=== PATIENT | male | born 1960 | race Two or more races ===

== ENCOUNTER 2024-08-22 11:28 | Inpatient (IN) | payer OTHER ==
[~2024-08-22] VITALS: Ht 165.1 cm; Wt 54.4 kg
[2024-08-22] MEDS ORDERED: HUMULIN 70100 UNIT/2 (12:32)
[2024-08-22] MEDS ORDERED: LOSARTAN (12:33)
[2024-08-29] MEDS ORDERED: CANDESARTAN CILE8 M1 (11:00)
[2024-08-29] MEDS ORDERED: SIMVASTATIN40 MG (11:00)
[2024-08-29] MEDS ORDERED: GABAPENTIN800 M1 (11:00)
[2024-08-29] MEDS ORDERED: OMEPRAZOLE40 MG (11:00)
[2024-08-29] MEDS ORDERED: METRONIDAZOLE/SODIUM CHLORIDE 500 MG/100 ML PIGGYBACK IV ONE (12:15)
[2024-08-29] MEDS ORDERED: LIDOCAINE HCL 1%/EPINEPHRINE 20ML VIAL IJ ONE (12:15)
[2024-08-29] MEDS ORDERED: BUPIVACAINE HCL/PF 0.25% 50 ML VIAL IJ ONE (12:15)
[2024-08-29] MEDS ORDERED: CEFTRIAXONE SODIUM 2,000 MG VIAL IV ONE (12:15)
[2024-08-29] MEDS ORDERED: OxyCODONE HCL 5 MG TABLET (ROXICODONE) PO PRN (14:15)
[2024-08-29] MEDS ORDERED: ONDANSETRON HCL 2 MG/ML VIAL IV PRN (14:15)
[2024-08-29] MEDS ORDERED: 0.9 % SODIUM CHLORIDE 1,000 ML IV SCH (14:15)
[2024-08-29] MEDS ORDERED: DEXTROSE 50 % IN WATER 0.5 G/ML DISP.SYRIN IV PRN ×2 (14:15→14:45)
[2024-08-29] MEDS ORDERED: MORPHINE SULFATE 4 MG/ML CARTRIDGE IV PRN (14:15)
[2024-08-29] MEDS ORDERED: INSULIN LISPRO 1,000 UNIT/10 ML UNITS SUBCUTANEO PRN (14:45)
[2024-08-29] MEDS ORDERED: GABAPENTIN 300 MG CAPSULE PO SCH (17:00)
[2024-08-29] MEDS ORDERED: METRONIDAZOLE/SODIUM CHLORIDE 500 MG/100 ML PIGGYBACK IV SCH (17:00)
[2024-08-29] MEDS ORDERED: HYOSCYAMINE SULFATE 0.125 MG TAB.SUBL SL SCH (17:00)
[2024-08-29] MEDS ORDERED: POLYETHYLENE GLYCOL 3350 17 GM BLIST.PACK PO SCH (17:00)
[2024-08-29] MEDS ORDERED: MORPHINE SULFATE 4 MG/ML VIAL IV ONE (17:05)
[2024-08-29 18:01] LABS: HEMATOCRIT 28.3 % (39.0-48.0); HEMOGLOBIN 9.5 g/dL (13-16.00); MEAN CELL VOLUME 74.9 fL (80.0-100.00); MEAN CORPUSCULAR HEMOGLOBIN 25.2 pg (27.00-32.0); MEAN CORPUSCULAR HGB CONC 33.6 g/dl (32.0-36.0); PLATELET COUNT 146 K/uL (150-450); RED BLOOD COUNT 3.78 M/uL (4.00-6.00); RED CELL DISTRIBUTION WIDTH 17.2 % (11.5-14.5)
[2024-08-29 18:25] LABS: ALBUMIN 3.3 gm/dL (3.4-5.0); CALCIUM 8.4 mg/dL (8.5-10.1); CREATININE SERUM 1.02 mg/dL (0.70-1.30); GFR 73.76; MAGNESIUM 2.2 mg/dL (1.8-2.4); PHOSPHOROUS 2.7 mg/dL (2.5-4.9); POTASSIUM 4.54 mEq/L (3.5-5.1)
[2024-08-29] MEDS ORDERED: ENALAPRILAT DIHYDRATE 1.25 MG/ML VIAL IV ONE (18:30)
[2024-08-29 19:36] VITALS: BP 136/63; O2SAT 100
[2024-08-29] MEDS ORDERED: ACETAMINOPHEN 500 MG GEL..CAP PO SCH (20:00)
[2024-08-29] MEDS ORDERED: CELECOXIB 200 MG CAPSULE PO SCH (21:00)
[2024-08-29] MEDS ORDERED: FAMOTIDINE/PF 20 MG/2 ML VIAL IV PUSH SCH (21:00)
[2024-08-30 00:47] VITALS: BP 137/85; O2SAT 100
[2024-08-30 07:06] LABS: HEMATOCRIT 27.7 % (39.0-48.0); HEMOGLOBIN 9.3 g/dL (13-16.00); MEAN CELL VOLUME 75.2 fL (80.0-100.00); MEAN CORPUSCULAR HEMOGLOBIN 25.3 pg (27.00-32.0); MEAN CORPUSCULAR HGB CONC 33.7 g/dl (32.0-36.0); PLATELET COUNT 156 K/uL (150-450); RED BLOOD COUNT 3.68 M/uL (4.00-6.00); RED CELL DISTRIBUTION WIDTH 17.1 % (11.5-14.5)
[2024-08-30 07:46] LABS: CALCIUM 8.1 mg/dL (8.5-10.1); CREATININE SERUM 1.11 mg/dL (0.70-1.30); GFR 66.91; MAGNESIUM 2.2 mg/dL (1.8-2.4); PHOSPHOROUS 3.6 mg/dL (2.5-4.9); POTASSIUM 5.11 mEq/L (3.5-5.1)
[2024-08-30 08:00] VITALS: BP 160/76; O2SAT 100
[2024-08-30] MEDS ORDERED: CANDESARTAN CILEXETIL 8 MG TAB PO SCH (09:00)
[2024-08-30 16:00] VITALS: BP 149/71; O2SAT 93
[2024-08-30] MEDS ORDERED: FOLIC ACID 1 MG TABLET PO SCH (17:00)
[2024-08-30] MEDS ORDERED: ENOXAPARIN SODIUM 40 MG/0.4 ML SYRINGE SUBCUTANEO SCH (17:00)
[2024-08-30] MEDS ORDERED: Cyanocobalamin/Mecobalamin 1 TAB.SL SL SCH (17:00)
[2024-08-31 00:43] VITALS: BP 160/77; O2SAT 97
[2024-08-31] MEDS ORDERED: ENOXAPARIN SODIUM 40 MG/0.4 ML SYRINGE SUBCUTANEO SCH (09:00)
[2024-08-31] MEDS ORDERED: SOD FERRIC GLUC COMPLX/SUCROSE 62.5 MG in 0.9 % SODIUM CHLORIDE 50 ML IV SCH (09:00)
[2024-08-31 09:41] VITALS: BP 173/84; O2SAT 99
[2024-08-31 16:13] VITALS: BP 163/78; O2SAT 99
[2024-08-31] MEDS ORDERED: TAMSULOSIN HCL 0.4 MG CAP PO SCH (17:00)
[2024-08-31 19:00] VITALS: BP 147/80
[2024-09-01 01:00] VITALS: BP 153/71; O2SAT 99
[2024-09-01 09:33] VITALS: BP 151/68; O2SAT 98
[2024-09-01] MEDS ORDERED: HYOSCYAMINE0.125 M1 SL (16:04)
[2024-09-01] MEDS ORDERED: INTESTINEX680 M1 PO (16:04)
== END 2024-09-01 17:08 | disposition home or self-care (01) | DRG 331 ==
LOC: SURH 08-29 08:48 → O/R 08-29 08:48 → SURH 08-29 11:45
PROVIDERS: ADMIT Surgery; ATTEND Surgery
PROC: 07BC4ZZ Excision of Pelvis Lymphatic, Percutaneous Endoscopic Approach (ICD-10-PCS; 2024-08-29)
PROC: 07BB4ZZ Excision of Mesenteric Lymphatic, Percutaneous Endoscopic Approach (ICD-10-PCS; 2024-08-29)
PROC: 0DTF4ZZ Resection of Right Large Intestine, Percutaneous Endoscopic Approach (ICD-10-PCS; principal; 2024-08-29 13:15)
DX: C18.3 Malignant neoplasm of hepatic flexure (principal); R59.0 Localized enlarged lymph nodes; K63.5 Polyp of colon; D64.89 Other specified anemias; E10.9 Type 1 diabetes mellitus without complications; I10 Essential (primary) hypertension; Z79.4 Long term (current) use of insulin